=== PATIENT | female | born 1965 | race Caucasian/White ===

== ENCOUNTER 2016-08-25 16:27 | Observation (INO) | payer OTHER ==
[~2016-08-25] VITALS: Ht 172.7 cm; Wt 76.5 kg
[2016-08-25] MEDS ORDERED: METO100T44 PO (16:54)
[2016-08-25] MEDS ORDERED: PROAIR INH (16:54)
[2016-08-25] MEDS ORDERED: ESCI10TA17 PO (16:54)
[2016-08-25] MEDS ORDERED: ROSU5TAB PO (16:54)
--- NOTE | 2016-08-25 16:59 | EMERGENCY ROOM VISIT NOTE ---
History First contact with patient: 16:43 Chief Complaint: HYPERTENSION Stated Complaint: HTN, HEADACHE, NOSE BLEED EARLIER TODAY History of Present Illness The patient is a 50 year old female who presents to the Emergency Room via private vehicle with complaints of "hypertension, headache, nosebleed earlier today. The patient states she has a history of hypertension, and takes metoprolol. She did take a medication this morning. 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 She then had a sudden onset of nausea followed by vomiting a very large nosebleed around 11:30 AM today. She states she then went to the school nurse who checked her blood pressure and the diastolic was 100. She then went home, and recheck blood pressure in the diastolic had raised to 110. She was recommended to come to the emergency department by the school nurse. She is also felt like she has had heartburn off and on. She also has a slight headache. She denies any trauma, falls, fevers, chills, abdominal pain, urinary symptoms, vaginal discharge, speech troubles or unilateral weakness. There is no history of blood clots. Review of Systems A complete 10-point Review of Systems was discussed with the patient, with pertinent positives and negatives listed in the History of Present Illness. All remaining Review of Systems questions can be considered negative unless otherwise specified. Past Medical/Surgical History Medical Problems: (1) Allergic rhinitis (2) Chest pain (3) Fatty liver (4) Hyperlipidemia (5) Hypertension (6) Migraine Surgical Problems: (1) H/O drainage of abscess (2) History of dental surgery (3) S/P tonsillectomy and adenoidectomy Heart disease, heart pressure, bronchitis, Bartholin cyst Family History Heart disease, high blood pressure, cold bladder disease Social History Smoking Status: Never Smoker Social History: Patient is currently employed, and lives at home with and children. She denies tobacco products but admits to alcohol products. Current/Historical Medications Scheduled Escitalopram (Lexapro), 10 MG PO DAILY Metoprolol Succ (Toprol Xl) (Toprol-Xl ), 100 MG PO DAILY Rosuvastatin Calcium (Crestor), 5 MG PO DAILY Scheduled PRN Fluticasone Propionate (Nasal) (Flonase Allergy Relief), 1 SPRAY KARLENE DAILY PRN for Nasal Congestion [antihistamine], Unknown Dose PO for allergies Allergies Coded Allergies: Sulfa Drugs (Verified Allergy, Unknown, 08/25/16) Physical Exam Vital Signs Date Time Temp Pulse Resp B/P Pulse Ox O2 Delivery O2 Flow Rate FiO2 08/25/16 18:04 08/25/16 17:57 77 18 167/98 98 Room Air 08/25/16 17:02 97 Room Air 08/25/16 16:58 80 08/25/16 16:31 36.8 84 18 196/99 97 Room Air Physical Exam VITAL SIGNS - Vital signs and nursing notes were reviewed. Patient is afebrile , hypertensive at 196/99, non-tachycardic and is saturating well on room air 97% . GENERAL -50-year-old female appearing her stated age who is in no acute distress. Communicates well with provider and answers questions appropriately. SKIN - Without rashes. No petechial rashes. HEAD - NC/AT. EYES - PERRL with EOMI bilaterally. Sclera anicteric. Palpebral conjunctiva pink and moist with no injection noted. EARS - No deformities of external structures noted on gross examination bilaterally. No pain elicited with palpation of the tragus bilaterally. External auditory canals without discharge or otorrhea. Tympanic membranes pearly cruz without retraction or bulging. No fluid or purulent material visualized behind the TM. Handle of malleus, umbo, cone of light, pars tensa/ flaccid all easily visualized. NOSE - Midline and without cyanosis. No epistaxis or purulent drainage noted. Septum midline without deviation or septal hematoma noted. MOUTH/OROPHARYNX - Without perioral cyanosis. Buccal mucosa pink and moist and without leukoplakia. Tongue midline with equal elevation of palate bilaterally. No tonsillar hypertrophy, erythema, or exudates noted. Fair dentition noted. NECK - Neck with FROM. Supple to palpation. No lymphadenopathy noted. No nuchal rigidity. LUNGS - Chest wall symmetric without accessory muscle use, intercostals retractions, or central cyanosis. Normal vesicular breath sounds CTA B/L. No wheezes, rales, or rhonchi appreciated. CARDIAC - RRR with S1/S2. No murmur, rubs, or gallops appreciated. ABDOMEN - Abdominal contour without pulsations or visible masses. BS normoactive all four quadrants. No tenderness, palpable masses, hepatosplenomegaly, or ascites noted. EXTREMITIES - No clubbing or peripheral cyanosis. No pretibial edema present. + 5/5 strength noted in UE/LE bilaterally. NEUROLOGIC - Cranial nerves II through XII grossly intact. Sensory intact to light touch throughout. PSYCH - A&Ox3 and cooperates fully with examiner. Pt is very pleasant and interacts well with examiner. Medical Decision & Procedures ER Provider Diagnostic Interpretation: CHEST ONE VIEW PORTABLE CLINICAL HISTORY: Chest discomfort dyspnea COMPARISON STUDY: No previous studies for comparison. FINDINGS: The bones soft tissues and hemidiaphragms are normal. The cardiomediastinal silhouette is normal. The lungs are clear. The pulmonary vasculature is normal. IMPRESSION: Negative chest. Electronically signed by: Dequan Fontaine M.D. 08/25/2016 5:09 PM Dictated Date/Time: 08/25/2016 5:[address] CT DOSE: 537.48 mGy.cm HISTORY: Hypertension, Nausea, vomiting, headache TECHNIQUE: Multiaxial CT images of the head were performed without the use of intravenous contrast. Comparison: None. Findings: The paranasal sinuses and mastoid air cells are clear. The calvarium and skull base are intact. The ventricles and sulci are within normal limits. There is no mass, hematoma, midline shift, or acute infarct. Impression: No acute intracranial abnormality. Electronically signed by: Dequan Fontaine M.D. 08/25/2016 5:23 PM Dictated Date/Time: 08/25/2016 5:21 PM Laboratory Results 08/25/16 16:46 Red Blood Count 3.73, Mean Corpuscular Volume 103.2, Mean Corpuscular Hemoglobin 37.3, Mean Corpuscular Hemoglobin Concent 36.1, Mean Platelet Volume 9.8, Neutrophils (%) (Auto) 68.1, Lymphocytes (%) (Auto) 22.9, Monocytes (%) ( Auto) 6.7, Eosinophils (%) (Auto) 1.7, Basophils (%) (Auto) 0.3, Neutrophils # ( Auto) 4.79, Lymphocytes # (Auto) 1.61, Monocytes # (Auto) 0.47, Eosinophils # ( Auto) 0.12, Basophils # (Auto) 0.02 08/25/16 16:46 Test 08/25/16 16:46 08/25/16 17:00 08/25/16 17:05 4 17:31 White Blood Count 7.03 K/uL (4.8-10.8) Red Blood Count 3.73 M/uL (4.2-5.4) Hemoglobin 13.9 g/dL (12.0-16.0) Hematocrit 38.5 % (37-47) Mean Corpuscular Volume 103.2 fL (80-100) Mean Corpuscular Hemoglobin 37.3 pg (25-34) Mean Corpuscular Hemoglobin Concent 36.1 g/dl (32-36) Platelet Count 202 K/uL (130-400) Mean Platelet Volume 9.8 fL (7.4-10.4) Neutrophils (%) (Auto) 68.1 % Lymphocytes (%) (Auto) 22.9 % Monocytes (%) (Auto) 6.7 % Eosinophils (%) (Auto) 1.7 % Basophils (%) (Auto) 0.3 % Neutrophils # (Auto) 4.79 K/uL (1.4-6.5) Lymphocytes # (Auto) 1.61 K/uL (1.2-3.4) Monocytes # (Auto) 0.47 K/uL (0.11-0.59) Eosinophils # (Auto) 0.12 K/uL (0-0.5) Basophils # (Auto) 0.02 K/uL (0-0.2) RDW Standard Deviation 45.0 fL (36.4-46.3) RDW Coefficient of Variation 11.9 % (11.5-14.5) Immature Granulocyte % (Auto) 0.3 % Immature Granulocyte # (Auto) 0.02 K/uL (0.00-0.02) Prothrombin Time 11.0 SECONDS (9.0-12.0) Prothromb Time International Ratio 1.0 (0.9-1.1) Activated Partial Thromboplast Time 25.6 SECONDS (21.0-31.0) Partial Thromboplastin Ratio 1.0 Anion Gap 6.0 mmol/L (3-11) Est Creatinine Clear Calc Drug Dose 119.1 ml/min Estimated GFR () 121.7 Estimated GFR (Non- 105.0 BUN/Creatinine Ratio 13.9 (10-20) Calcium Level 9.5 mg/dl (8.5-10.1) Magnesium Level 1.9 mg/dl (1.8-2.4) Total Bilirubin 0.9 mg/dl (0.2-1) Aspartate Amino Transf (AST/SGOT) 193 U/L (15-37) Alanine Aminotransferase (ALT/SGPT) 154 U/L (12-78) Alkaline Phosphatase 116 U/L (45-117) Total Protein 8.0 gm/dl (6.4-8.2) Albumin 4.1 gm/dl (3.4-5.0) Globulin 3.9 gm/dl (2.5-4.0) Albumin/Globulin Ratio 1.1 (0.9-2) Lipase 151 U/L (73-393) Thyroid Stimulating Hormone (TSH) 2.390 uIu/ml (0.300-4.500) Bedside D-Dimer 240 ng/mlFEU (0-450) Influenza Type A Antigen Neg for Influ A (NEG) Influenza Type B Antigen Neg for Influ B (NEG) Urine Color YELLOW Urine Appearance CLEAR (CLEAR) Urine pH 6.5 (4.5-7.5) Urine Specific [place] 1.015 (1.000-1.030) Urine Protein NEG (NEG) Urine Glucose (UA) NEG (NEG) Urine Ketones NEG (NEG) Urine Occult Blood NEG (NEG) Urine Nitrite NEG (NEG) Urine Bilirubin NEG (NEG) Urine Urobilinogen NEG (NEG) Urine Leukocyte Esterase NEG (NEG) Urine Test NEG (NEG) Urine Opiates Screen NEG (NEG) Urine Methadone, Qualitative NEG (NEG) Urine Barbiturates NEG (NEG) Urine Phencyclidine (PCP) Level NEG (NEG) Ur Amphetamine/Methamphetamine NEG (NEG) MDMA (Ecstasy) Screen NEG (NEG) Urine Benzodiazepines Screen NEG (NEG) Urine Cocaine Metabolite NEG (NEG) Urine Marijuana (THC) NEG (NEG) Test 08/25/16 18:04 Bedside Troponin I 0.010 ng/ml (0-0.045) Medical Decision Patient was seen and evaluated as above. After obtaining a thorough history and physical examination IV access was initiated and the above workup was performed. CT scan of the head was initiated and was unremarkable. CBC reveals no leukocytosis. Slight red blood cell count decreased was noted. Coagulation studies unremarkable. D-dimer is negative. CMP reveals slight decrease in potassium at 3.3. AST and ALTs were both elevated, but the patient states that this is a known finding. She states that she is being worked up by her family doctor for this. Point care troponin was 0.000. TSH within normal limits. EKG shows normal sinus rhythm, rate of 85 bpm without ectopy or ischemic change. No previous EKG for comparison. Point of care troponin was repeated and was found to be slightly elevated at 0.010. Patient denied chest pain but did state she felt as though she had acid reflux throughout the day. This is concerning for potential cardiac etiology. I did discuss the case with my attending, and although the patient's presentation, and laboratory results are not suggestive of emergent process, the troponin increase is concerning. The case then was discussed with the hospitalist, who agreed to evaluate the patient. Please refer to further documentation regarding the patient's stay. In the evaluation and treatment of this patient, the following differential diagnoses were considered: Concussion, Contrecoup Injury, Brain Tumor, Depression, Encephalitis, Hypothyroidism, Meningitis, CVA, TIA, Migraine, Cluster Headache, Intracranial Abnormality, Intracranial Hemorrhage, Subdural Hematoma, Subarachnoid Hemorrhage, Hydrocephalus, myocardial infarction, PE, ACS , among others. Impression Primary Impression: Chest pain Additional Impressions: Hypertension Fatty liver Hypokalemia Departure Information Dispostion Admitted as an inpatient Condition FAIR Referrals Rickey Reilly M.D. (PCP) Patient Instructions [facility] Problem Qualifiers
[2016-08-25 17:05] LABS: BASO % 0.3 %; BASO ABS # 0.02 K/uL (0-0.2); COMPLETE YES; EOS % 1.7 %; HEMATOCRIT 38.5 % (37-47); IG% 0.3 %; LYMPH % 22.9 %; LYMPH ABS # 1.61 K/uL (1.2-3.4); MEAN CELL VOLUME 103.2 fL (80-100); MEAN CORPUSCULAR HEMOGLOBIN 37.3 pg (25-34); MEAN CORPUSCULAR HGB CONC 36.1 g/dl (32-36); MEAN PLATELET VOLUME 9.8 fL (7.4-10.4); MONO % 6.7 %; NEUT % 68.1 %; PLATELET COUNT 202 K/uL (130-400); RED BLOOD COUNT 3.73 M/uL (4.2-5.4); WHITE BLOOD COUNT 7.03 K/uL (4.8-10.8)
--- NOTE | 2016-08-25 17:11 | DIAGNOSTIC IMAGING REPORT ---
CHEST ONE VIEW PORTABLE CLINICAL HISTORY: Chest discomfort dyspnea COMPARISON STUDY: No previous studies for comparison. FINDINGS: The bones soft tissues and hemidiaphragms are normal. The cardiomediastinal silhouette is normal. The lungs are clear. The pulmonary vasculature is normal. IMPRESSION: Negative chest. Electronically signed by: Dequan Fontaine M.D. 08/25/2016 5:09 PM Dictated Date/Time: 08/25/2016 5:09 PM
[2016-08-25 17:16] LABS: BUN/CREATININE RATIO 13.9 (10-20); CALCIUM 9.5 mg/dl (8.5-10.1); CREATININE 0.61 mg/dl (0.60-1.20); MAGNESIUM 1.9 mg/dl (1.8-2.4); POTASSIUM 3.3 mmol/L (3.5-5.1)
--- NOTE | 2016-08-25 17:25 | DIAGNOSTIC IMAGING REPORT ---
HEAD CT NONCONTRAST CT DOSE: 537.48 mGy.cm HISTORY: Hypertension, Nausea, vomiting, headache TECHNIQUE: Multiaxial CT images of the head were performed without the use of intravenous contrast. Comparison: None. Findings: The paranasal sinuses and mastoid air cells are clear. The calvarium and skull base are intact. The ventricles and sulci are within normal limits. There is no mass, hematoma, midline shift, or acute infarct. Impression: No acute intracranial abnormality. Electronically signed by: Dequan Fontaine M.D. 08/25/2016 5:23 PM Dictated Date/Time: 08/25/2016 5:21 PM
[2016-08-25 17:27] LABS: ALB/GLOB RATIO 1.1 (0.9-2); CKMB/CK RATIO 0.9 (0-3.0); THYROID STIMULATING HORMONE 2.39 uIu/ml (0.300-4.500)
[2016-08-25 17:47] LABS: URINE APPEARANCE CLEAR (CLEAR); URINE BILIRUBIN NEG (NEG); URINE COLOR YELLOW; URINE NITRITE NEG (NEG); URINE PH 6.5 (4.5-7.5); URINE SPECIFIC GRAVITY 1.015 (1.000-1.030); UROBILINOGEN NEG (NEG); ZZUR CULT IF INDIC CLEAN CATCH NO
[2016-08-25 17:50] LABS: MANUAL MICROSCOPIC REQUIRED? NO; REVIEW REQ? NO
[2016-08-25 18:30] LABS: BENZODIAZEPINE, URINE NEG (NEG); COCAINE,URINE NEG (NEG); PHENCYCLIDINE, URINE NEG (NEG)
[2016-08-25] MEDS ORDERED: ONDANSETRON INJ 2 MG/ML 2 ML VIAL IV PRN (19:30)
[2016-08-25] MEDS ORDERED: ACETAMINOPHEN 325 MG TAB PO PRN (19:30)
[2016-08-25] MEDS ORDERED: antihistamine PO (19:37)
[2016-08-25] MEDS ORDERED: FLUT0.15 NAE (19:37)
[2016-08-25] MEDS ORDERED: FLUTICASONE PROPIONATE NA SPR 16 GM BTL NAE PRN (19:45)
[2016-08-25 20:13] VITALS: Ht 172.7 cm; Wt 76.5 kg
--- NOTE | 2016-08-25 20:46 | History and Physical ---
History & Physical Date & Time of Service: Aug 25, 2016 at 19:38 Chief Complaint: Htn, Headache, Nose Bleed Earlier Today Primary Care Physician: Chirag Collins M.D. History of Present Illness Source: patient, clinic records This is a 50 year old female with PMH of HTN, HL, fatty liver, and other problems listed below who presents to the ED for elevated blood pressure. Patient was in her normal state of health today when she suddenly became nauseous and vomited x 1. Then had episode of epistaxis lasting 20 minutes. 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 Also c/o mild DAVIS described as pressure. Had intermittent chest pain this afternoon described as burning in substernal area without radiation. Episodes lasted seconds and were unrelated to exertion or position. CP and nausea now resolved and patient would like to eat. In the ER, BP was 190s/90s-> 160s/90s -> 179/100 at time of my exam. She did take her usual metoprolol succinate 100 mg daily this am which she has been taking since 2008. Patient denies diaphoresis, dizziness, vision change, palpitations, URI symptoms, cough, SOB, KEENAN, abdominal pain, diarrhea, constipation, dysuria, frequency, calf pain or edema, anxiety, rash. Denies eating anything out of the ordinary. No sick contact, heavy lifting, recent travel. Reports h/o heart murmur as a child. Resting echo in 2008 showed normal EF and mild mitral regurgitation. Denies any other cardiac disorder. Has not had a stress test in the past. Denies hx of gallbladder disease. Pt was on Azithromycin and 1 week course of prednisone approx 1 month ago for acute bronchitis. Past Medical/Surgical History Medical Problems: (1) Allergic rhinitis Status: Chronic (2) Fatty liver Status: Chronic (3) Hyperlipidemia Status: Chronic (4) Hypertension Status: Chronic (5) Migraine Status: Chronic Surgical Problems: (1) H/O drainage of abscess Status: Chronic (2) History of dental surgery Status: Chronic (3) S/P tonsillectomy and adenoidectomy Status: Chronic Family History FH: CAD (coronary artery disease) FATHER ( of [place] age 65) Hypertension MOTHER SISTER Social History Smoking Status: Never Smoker Alcohol Use: 2 glasses of wine per day Marital Status: Housing status: lives with family Occupational Status: employed (works at [employer] ) Multi-Drug Resistant Organisms History of MDRO: No Allergies Coded Allergies: Sulfa Drugs (Verified Allergy, Unknown, 08/25/16) Home Medications Scheduled Escitalopram (Lexapro), 10 MG PO DAILY Metoprolol Succ (Toprol Xl) (Toprol-Xl ), 100 MG PO DAILY Rosuvastatin Calcium (Crestor), 5 MG PO DAILY Scheduled PRN Fluticasone Propionate (Nasal) (Flonase Allergy Relief), 1 SPRAY KARLENE DAILY PRN for Nasal Congestion [antihistamine], Unknown Dose PO for allergies Review of Systems Ten point ROS performed with pertinent positives and negatives noted in HPI. Physical Exam Vital Signs Date Time Temp Pulse Resp B/P Pulse Ox O2 Delivery O2 Flow Rate FiO2 08/25/16 18:04 08/25/16 17:57 77 18 167/98 98 Room Air 08/25/16 17:02 97 Room Air 08/25/16 16:58 80 08/25/16 16:31 36.8 84 18 196/99 97 Room Air General Appearance: WD/WN, no apparent distress, + pertinent finding (pleasant alert 50 year old female, no distress, and daughter at bedside) Head: normocephalic, atraumatic Eyes: normal inspection, PERRL, EOMI ENT: hearing grossly normal, pharynx normal Neck: supple, no JVD, trachea midline Respiratory/Chest: chest non-tender, lungs clear, normal breath sounds, no respiratory distress, no accessory muscle use Cardiovascular: regular rate, rhythm, no murmur, normal peripheral pulses Abdomen/GI: normal bowel sounds, non tender, soft Extremities/Musculoskelatal: no calf tenderness, no pedal edema Neurologic/Psych: alert, normal mood/affect, oriented x 3, + pertinent finding (grossly nonfocal) Skin: normal color, warm/dry, no rash (no rash on the chest) Diagnostics Laboratory Results Results Past 24 Hours Test 08/25/16 16:46 08/25/16 17:00 08/25/16 17:05 08/25/16 17:31 Range/Units White Blood Count 7.03 4.8-10.8 K/uL Red Blood Count 3.73 4.2-5.4 M/uL Hemoglobin 13.9 12.0-16.0 g/dL Hematocrit 38.5 37-47 % Mean Corpuscular Volume 103.2 80-100 fL Mean Corpuscular Hemoglobin 37.3 25-34 pg Mean Corpuscular Hemoglobin Concent 36.1 32-36 g/dl Platelet Count 202 130-400 K/uL Mean Platelet Volume 9.8 7.4-10.4 fL Neutrophils (%) (Auto) 68.1 % Lymphocytes (%) (Auto) 22.9 % Monocytes (%) (Auto) 6.7 % Eosinophils (%) (Auto) 1.7 % Basophils (%) (Auto) 0.3 % Neutrophils # (Auto) 4.79 1.4-6.5 K/uL Lymphocytes # (Auto) 1.61 1.2-3.4 K/uL Monocytes # (Auto) 0.47 0.11-0.59 K/uL Eosinophils # (Auto) 0.12 0-0.5 K/uL Basophils # (Auto) 0.02 0-0.2 K/uL RDW Standard Deviation 45.0 36.4-46.3 fL RDW Coefficient of Variation 11.9 11.5-14.5 % Immature Granulocyte % (Auto) 0.3 % Immature Granulocyte # (Auto) 0.02 0.00-0.02 K/uL Prothrombin Time 11.0 9.0-12.0 SECONDS Prothromb Time International Ratio 1.0 0.9-1.1 Activated Partial Thromboplast Time 25.6 21.0-31.0 SECONDS Partial Thromboplastin Ratio 1.0 Sodium Level 137 136-145 mmol/L Potassium Level 3.3 3.5-5.1 mmol/L Chloride Level 99 98-107 mmol/L Carbon Dioxide Level 32 21-32 mmol/L Anion Gap 6.0 3-11 mmol/L Blood Urea Nitrogen 8 7-18 mg/dl Creatinine 0.61 0.60-1.20 mg/dl Est Creatinine Clear Calc Drug Dose 119.1 ml/min Estimated GFR () 121.7 Estimated GFR (Non- 105.0 BUN/Creatinine Ratio 13.9 10-20 Random Glucose 95 70-99 mg/dl Calcium Level 9.5 8.5-10.1 mg/dl Magnesium Level 1.9 1.8-2.4 mg/dl Total Bilirubin 0.9 0.2-1 mg/dl Aspartate Amino Transf (AST/SGOT) 193 15-37 U/L Alanine Aminotransferase (ALT/SGPT) 154 12-78 U/L Alkaline Phosphatase 116 45-117 U/L Total Creatine Kinase 80 26-192 U/L Creatine Kinase MB 0.7 0.5-3.6 ng/ml Creatine Kinase MB Ratio 0.9 0-3.0 Total Protein 8.0 6.4-8.2 gm/dl Albumin 4.1 3.4-5.0 gm/dl Globulin 3.9 2.5-4.0 gm/dl Albumin/Globulin Ratio 1.1 0.9-2 Lipase 151 73-393 U/L Thyroid Stimulating Hormone (TSH) 2.390 0.300-4.500 uIu/ml Bedside D-Dimer 240 0-450 ng/mlFEU Bedside Troponin I 0.000 0-0.045 ng/ml Influenza Type A Antigen Neg for Influ A NEG Influenza Type B Antigen Neg for Influ B NEG Urine Color YELLOW Urine Appearance CLEAR CLEAR Urine pH 6.5 4.5-7.5 Urine Specific [place] 1.015 1.000-1.030 Urine Protein NEG NEG Urine Glucose (UA) NEG NEG Urine Ketones NEG NEG Urine Occult Blood NEG NEG Urine Nitrite NEG NEG Urine Bilirubin NEG NEG Urine Urobilinogen NEG NEG Urine Leukocyte Esterase NEG NEG Urine Test NEG NEG Urine Opiates Screen NEG NEG Urine Methadone, Qualitative NEG NEG Urine Barbiturates NEG NEG Urine Phencyclidine (PCP) Level NEG NEG Ur Amphetamine/Methamphetamine NEG NEG MDMA (Ecstasy) Screen NEG NEG Urine Benzodiazepines Screen NEG NEG Urine Cocaine Metabolite NEG NEG Urine Marijuana (THC) NEG NEG Test 08/25/16 18:04 08/25/16 19:33 Range/Units Bedside Troponin I 0.010 0-0.045 ng/ml Diagnostic Radiology HEAD CT NONCONTRAST CT DOSE: 537.48 mGy.cm HISTORY: Hypertension, Nausea, vomiting, headache TECHNIQUE: Multiaxial CT images of the head were performed without the use of intravenous contrast. Comparison: None. Findings: The paranasal sinuses and mastoid air cells are clear. The calvarium and skull base are intact. The ventricles and sulci are within normal limits. There is no mass, hematoma, midline shift, or acute infarct. Impression: No acute intracranial abnormality. CHEST ONE VIEW PORTABLE CLINICAL HISTORY: Chest discomfort dyspnea COMPARISON STUDY: No previous studies for comparison. FINDINGS: The bones soft tissues and hemidiaphragms are normal. The cardiomediastinal silhouette is normal. The lungs are clear. The pulmonary vasculature is normal. IMPRESSION: Negative chest. EKG NSR, nonspecific T wave abnormality in lead III, no ST abnormality Impression Assessment and Plan HYPERTENSIVE URGENCY CT head- negative; no evidence of ischemia so far on cardiac workup Compliant with metoprolol succinate 100 mg daily with good BP control in the past Urine drug screen negative Will give IV labetalol 10 mg x 1 and recheck BP Continue metoprolol succinate CHEST PAIN Rule out ACS; Risk factors- HTN, HL, + family history May be secondary to hypertensive urgency vs. GI related Prior echo 2008- normal LV EF, mild MR Initial troponin 0.00 -> 0.01 in ER EKG- nonspecific T wave abnormality lead III, no ST abnormality CXR- no acute findings Give aspirin 324 mg Continue statin and beta williams Trend serial enzymes Repeat EKG in am HYPOKALEMIA Likely from GI loss due to vomiting episode Replace with 40 meq PO and 20 meq IV Recheck PRP in am TRANSAMINITIS Has elevated LFT's from 2008- 2012 as outpatient Hx of fatty liver; also may be related to statin use Check RUQ ultrasound to r/o gallbladder/ biliary system pathology Check GGT; Check ferritin, iron, TIBC to r/o hemochromatosis; Screen for hepatitis A and B Recheck LFT's in am DYSLIPIDEMIA Continue statin Check fasting lipid panel in am PANIC DISORDER Continue Lexapro DVT PROPHYLAXIS Lovenox SQ FULL CODE DISPOSITION Observation to telemetry Follows with Dr. Collins for primary care Patient seen in collaboration with Dr. Young. Please see her addendum. ATTENDING ADDENDUM Record reviewed. Patient interviewed and examined. Care coordinated with Rosario Dunham PA-C. Please refer to her documentation for patient's history. No antihypertensives given in ER, gave labetalol 20mg x one on the floor. Repeat BP is pending. Will monitor overnight with call parameters to provider. Uncertain cause--off short course of steroids as of 3 weeks ago (7 day course for bronchitis), denies dietary indiscretions except for [place] food at a restaurant over the weekend, compliant with Toprol. Of note, we discussed that her PCP chose Toprol to avoid reaction to meds with sulfonamides. Although HCTZ is one of those meds, she would be a good candidate for an ACEI, ARB or CCB. Defer to primary team for this selection pending overnight pressures; cont Toprol for now. Cont telemetry monitoring and rule out ACS. Initial workup for mildly elevated LFTs is pending in setting of known fatty liver disease and statin use, which is the likely cause here. [place] Level of Care Telemetry Resuscitation Status FULL RESUSCITATION VTE Prophylaxis VTE Risk Assessment Done? Y/N: Yes Risk Level: Moderate Given or contraindicated: Enoxaparin (Lovenox)SQ Social Service Consult None Apply
--- NOTE | 2016-08-25 20:52 | DIAGNOSTIC IMAGING REPORT ---
Right upper quadrant ultrasound GALLBLADDER-ABD LIMITED CLINICAL HISTORY: transaminitis TECHNIQUE: Real-time ultrasound COMPARISON STUDY: None FINDINGS: Normal gallbladder. Common bile duct 3 mm. Fatty infiltration of liver. Pancreas and right kidney are unremarkable. IMPRESSION: Fatty infiltration of liver. Otherwise normal study Electronically signed by: Dequan Fontaine M.D. 08/25/2016 8:51 PM Dictated Date/Time: 08/25/2016 8:50 PM
[2016-08-25] MEDS ORDERED: LABETALOL HCL IV 5 MG/ML 20ML IV ONE (21:00)
[2016-08-25] MEDS ORDERED: POTASSIUM CHLORIDE 10 MEQ TABCR PO ONE ×2 (21:00)
[2016-08-25] MEDS: POTASSIUM CHLR 10 MEQ / WTR 10 MEQ in PREMIXED WATER 100 ML IV SCH ×2 (21:03→22:44)
[2016-08-25] MEDS ORDERED: LABETALOL HCL IV 5 MG/ML 20ML IV STA (21:15)
[2016-08-25 21:17] VITALS: BP_SYST 189; BP_SYST 197; BP_DIAS 102; BP_DIAS 95; PULSE 78; TEMP 37.1; O2SAT 94
[2016-08-25] MEDS ORDERED: ENOXAPARIN 40 MG/0.4 ML SYR SC SCH (22:00)
[2016-08-25] MEDS ORDERED: ASPIRIN 81 MG CHEW PO ONE (22:00)
[2016-08-25 22:15] VITALS: BP_SYST 167; BP_SYST 184; BP_DIAS 104; BP_DIAS 107; PULSE 63; O2SAT 95
[2016-08-25] MEDS ORDERED: IV FLUIDS COMPLETED PRN (23:15)
[2016-08-25 23:58] VITALS: BP 161/80; PULSE 79; TEMP 37; O2SAT 95
[2016-08-25 23:59] VITALS: O2SAT 95
[2016-08-26] VITALS (8 sets, daily range): BP systolic 135–181; BP diastolic 75–112; PULSE 69–78; TEMP 36.8–37.1; O2SAT 95–98
[2016-08-26 06:00] LABS: MEAN CELL VOLUME 102.6 fL (80-100); MEAN CORPUSCULAR HEMOGLOBIN 37.8 pg (25-34); MEAN CORPUSCULAR HGB CONC 36.9 g/dl (32-36); MEAN PLATELET VOLUME 9.9 fL (7.4-10.4); PLATELET COUNT 164 K/uL (130-400); RED BLOOD COUNT 3.41 M/uL (4.2-5.4); WHITE BLOOD COUNT 4.02 K/uL (4.8-10.8)
[2016-08-26 06:34] LABS: ALT/SGPT 117 U/L (12-78); BLOOD UREA NITROGEN 6 mg/dl (7-18); CARBON DIOXIDE 26 mmol/L (21-32); CHLORIDE 105 mmol/L (98-107); CHOLESTEROL 218 mg/dl (0-200); CREATININE 0.43 mg/dl (0.60-1.20); GLUCOSE 96 mg/dl (70-99); POTASSIUM 3.5 mmol/L (3.5-5.1); SODIUM 141 mmol/L (136-145); TRIGLYCERIDES 337 mg/dl (0-150); VERY LOW DENSITY LIPOPROT CALC 67 mg/dl
[2016-08-26 06:38] LABS: ALKALINE PHOSPHATASE 98 U/L (45-117); AST/SGOT 143 U/L (15-37); CKMB/CK RATIO 1.3 (0-3.0); FERRITIN 318.9 ng/ml (8.0-388.0); HDL CHOLESTEROL 44 mg/dl; LDL CHOLESTEROL CALCULATED 107 mg/dl; TOTAL IRON BINDING CAPACITY 257 mcg/dl (250-450)
[2016-08-26] MEDS ORDERED: METOPROLOL SUCC 50MG EXT REL TAB PO SCH (09:00)
[2016-08-26] MEDS ORDERED: ESCITALOPRAM OXALATE 10 MG TAB PO SCH (09:00)
[2016-08-26] MEDS ORDERED: ROSUVASTATIN CALCIUM 10 MG TAB PO SCH (09:00)
[2016-08-26] MEDS ORDERED: LISINOPRIL 10 MG TAB PO SCH (10:30)
--- NOTE | 2016-08-26 11:10 | Progress Note ---
Internal Med Progress Note Date of Service: Aug 26, 2016. Provider Documentation: SUBJECTIVE: Patient is doing well Had heart burn yesterday after eating which resolved by itself No chest pain, sob, headaches, nausea, vomiting, abd pain, cough, leg swelling BP is still high OBJECTIVE: Vital Signs-as noted below Exam: General-AAOX3, no di stress Neck-Supple Lungs-AEBE, no wheezing, crackles, rhonchi Heart-S1, A6dfntny, mild murmur Abdomen-Soft, non tender, non distended, BS present Extremities-No edema Neuro- No focal deficits Lab data as noted below. ASSESSMENT & PLAN: Assessment and Plan HYPERTENSIVE URGENCY: Still high BP. Asymptomatic. Likely secondary to inadequate medications for BP control. Has had high BP in past. -Compliant with metoprolol succinate 100 mg daily -Add lisinopril 10 mg today. If still high, may consider HCTZ -Work up- CT head- negative; no evidence of ischemia so far on cardiac workup; Troponin x 3 negative, EKG- x 2 - no acute ischemic changes; Urine drug screen negative Echo done- pending results CHEST PAIN, Likely GERD as clinically heart burn with food intake, resolved. Also had an episode of vomiting -Troponin x 3 negative, EKG x 2 - no significant abnormalities -Echo ordered- follow up -Continue with protonix HYPOKALEMIA Likely from GI loss due to vomiting episode -Replaced TRANSAMINITIS - Trending down Has elevated LFT's from 2008- 2012 as outpatient Hx of fatty liver -Continue with statin and monitor while on it -Work up- US liver- Fatty liver; Ferritin/Iron/TIBC - normal, Hep A/B- screening - pending, GGT-pendign DYSLIPIDEMIA -Continue statin -Lipid panel- TGS- 337, LDL 107 PANIC DISORDER -Continue Lexapro DVT PROPHYLAXIS -Lovenox SQ FULL CODE DISPOSITION -Observation to telemetry -Follows with Dr. Collins for primary care Vital Signs: Date Time Temp Pulse Resp B/P Pulse Ox O2 Delivery O2 Flow Rate FiO2 08/26/16 08:45 179/112 174/100 08/26/16 08:00 Room Air 08/26/16 07:34 36.9 76 18 181/96 96 Room Air 08/26/16 04:00 95 Room Air 08/26/16 03:09 36.8 69 18 135/75 98 Room Air 08/25/16 23:59 95 Room Air 08/25/16 23:58 37.0 79 17 161/80 95 Room Air 08/25/16 22:15 63 18 184/104 95 Room Air 167/107 08/25/16 21:17 37.1 78 18 197/102 94 Room Air 189/95 08/25/16 20:13 Room Air 08/25/16 19:57 76 20 179/100 98 Room Air 08/25/16 18:04 08/25/16 17:57 77 18 167/98 98 Room Air 08/25/16 17:02 97 Room Air 08/25/16 16:58 80 08/25/16 16:31 36.8 84 18 196/99 97 Room Air Lab Results: Results Past 24 Hours Test 08/25/16 16:46 08/25/16 17:00 08/25/16 17:05 08/25/16 17:31 Range/Units White Blood Count 7.03 4.8-10.8 K/uL Red Blood Count 3.73 4.2-5.4 M/uL Hemoglobin 13.9 12.0-16.0 g/dL Hematocrit 38.5 37-47 % Mean Corpuscular Volume 103.2 80-100 fL Mean Corpuscular Hemoglobin 37.3 25-34 pg Mean Corpuscular Hemoglobin Concent 36.1 32-36 g/dl Platelet Count 202 130-400 K/uL Mean Platelet Volume 9.8 7.4-10.4 fL Neutrophils (%) (Auto) 68.1 % Lymphocytes (%) (Auto) 22.9 % Monocytes (%) (Auto) 6.7 % Eosinophils (%) (Auto) 1.7 % Basophils (%) (Auto) 0.3 % Neutrophils # (Auto) 4.79 1.4-6.5 K/uL Lymphocytes # (Auto) 1.61 1.2-3.4 K/uL Monocytes # (Auto) 0.47 0.11-0.59 K/uL Eosinophils # (Auto) 0.12 0-0.5 K/uL Basophils # (Auto) 0.02 0-0.2 K/uL RDW Standard Deviation 45.0 36.4-46.3 fL RDW Coefficient of Variation 11.9 11.5-14.5 % Immature Granulocyte % (Auto) 0.3 % Immature Granulocyte # (Auto) 0.02 0.00-0.02 K/uL Prothrombin Time 11.0 9.0-12.0 SECONDS Prothromb Time International Ratio 1.0 0.9-1.1 Activated Partial Thromboplast Time 25.6 21.0-31.0 SECONDS Partial Thromboplastin Ratio 1.0 Sodium Level 137 136-145 mmol/L Potassium Level 3.3 3.5-5.1 mmol/L Chloride Level 99 98-107 mmol/L Carbon Dioxide Level 32 21-32 mmol/L Anion Gap 6.0 3-11 mmol/L Blood Urea Nitrogen 8 7-18 mg/dl Creatinine 0.61 0.60-1.20 mg/dl Est Creatinine Clear Calc Drug Dose 119.1 ml/min Estimated GFR () 121.7 Estimated GFR (Non- 105.0 BUN/Creatinine Ratio 13.9 10-20 Random Glucose 95 70-99 mg/dl Calcium Level 9.5 8.5-10.1 mg/dl Magnesium Level 1.9 1.8-2.4 mg/dl Total Bilirubin 0.9 0.2-1 mg/dl Aspartate Amino Transf (AST/SGOT) 193 15-37 U/L Alanine Aminotransferase (ALT/SGPT) 154 12-78 U/L Alkaline Phosphatase 116 45-117 U/L Total Creatine Kinase 80 26-192 U/L Creatine Kinase MB 0.7 0.5-3.6 ng/ml Creatine Kinase MB Ratio 0.9 0-3.0 Troponin I < 0.015 0-0.045 ng/ml Total Protein 8.0 6.4-8.2 gm/dl Albumin 4.1 3.4-5.0 gm/dl Globulin 3.9 2.5-4.0 gm/dl Albumin/Globulin Ratio 1.1 0.9-2 Lipase 151 73-393 U/L Thyroid Stimulating Hormone (TSH) 2.390 0.300-4.500 uIu/ml Bedside D-Dimer 240 0-450 ng/mlFEU Bedside Troponin I 0.000 0-0.045 ng/ml Influenza Type A Antigen Neg for Influ A NEG Influenza Type B Antigen Neg for Influ B NEG Urine Color YELLOW Urine Appearance CLEAR CLEAR Urine pH 6.5 4.5-7.5 Urine Specific [place] 1.015 1.000-1.030 Urine Protein NEG NEG Urine Glucose (UA) NEG NEG Urine Ketones NEG NEG Urine Occult Blood NEG NEG Urine Nitrite NEG NEG Urine Bilirubin NEG NEG Urine Urobilinogen NEG NEG Urine Leukocyte Esterase NEG NEG Urine Test NEG NEG Urine Opiates Screen NEG NEG Urine Methadone, Qualitative NEG NEG Urine Barbiturates NEG NEG Urine Phencyclidine (PCP) Level NEG NEG Ur Amphetamine/Methamphetamine NEG NEG MDMA (Ecstasy) Screen NEG NEG Urine Benzodiazepines Screen NEG NEG Urine Cocaine Metabolite NEG NEG Urine Marijuana (THC) NEG NEG Test 08/25/16 18:04 08/25/16 23:15 08/26/16 05:18 Range/Units Bedside Troponin I 0.010 0-0.045 ng/ml Total Creatine Kinase 58 53 26-192 U/L Creatine Kinase MB 0.6 0.7 0.5-3.6 ng/ml Creatine Kinase MB Ratio 1.0 1.3 0-3.0 Troponin I < 0.015 < 0.015 0-0.045 ng/ml White Blood Count 4.02 4.8-10.8 K/uL Red Blood Count 3.41 4.2-5.4 M/uL Hemoglobin 12.9 12.0-16.0 g/dL Hematocrit 35.0 37-47 % Mean Corpuscular Volume 102.6 80-100 fL Mean Corpuscular Hemoglobin 37.8 25-34 pg Mean Corpuscular Hemoglobin Concent 36.9 32-36 g/dl RDW Standard Deviation 45.0 36.4-46.3 fL RDW Coefficient of Variation 12.0 11.5-14.5 % Platelet Count 164 130-400 K/uL Mean Platelet Volume 9.9 7.4-10.4 fL Sodium Level 141 136-145 mmol/L Potassium Level 3.5 3.5-5.1 mmol/L Chloride Level 105 98-107 mmol/L Carbon Dioxide Level 26 21-32 mmol/L Anion Gap 10.0 3-11 mmol/L Blood Urea Nitrogen 6 7-18 mg/dl Creatinine 0.43 0.60-1.20 mg/dl Est Creatinine Clear Calc Drug Dose 169.0 ml/min Estimated GFR () 136.5 Estimated GFR (Non- 117.8 BUN/Creatinine Ratio 14.0 10-20 Random Glucose 96 70-99 mg/dl Calcium Level 9.0 8.5-10.1 mg/dl Iron Level 97 35-150 mcg/dl Total Iron Binding Capacity 257 250-450 mcg/dl Ferritin 318.9 8.0-388.0 ng/ml Total Bilirubin 0.9 0.2-1 mg/dl Direct Bilirubin 0.2 0-0.2 mg/dl Aspartate Amino Transf (AST/SGOT) 143 15-37 U/L Alanine Aminotransferase (ALT/SGPT) 117 12-78 U/L Alkaline Phosphatase 98 45-117 U/L Total Protein 6.8 6.4-8.2 gm/dl Albumin 3.6 3.4-5.0 gm/dl Triglycerides Level 337 0-150 mg/dl Cholesterol Level 218 0-200 mg/dl HDL Cholesterol 44 mg/dl LDL Cholesterol, Calculated 107 mg/dl VLDL Cholesterol, Calculated 67 mg/dl Cholesterol/HDL Ratio 5.0 Hepatitis B Surface Antigen NEG NEG Hepatitis C Antibody NEG NEG
[2016-08-26] MEDS ORDERED: LSN10 PO (15:32)
--- NOTE | 2016-08-26 15:35 | Discharge Instructions ---
Discharge Instructions Date of Service Aug 26, 2016. Admission Reason for Admission: Chest Pain Discharge Discharge Diagnosis / Problem: 1. Hypertensive urgency Discharge Goals Goal(s): Therapeutic intervention, Prevent Disease Progression Activity Recommendations Activity Limitations: resume your previous activity . Instructions / Follow-Up Instructions / Follow-Up MEDICATION CHANGES: 1. New medication: Lisinopril 10 mg daily MONITOR BP at home- take readings with you during next office appointment FOLLOW UP 1. With Dr Stephens 08/31/16 at11:20 AM Current Hospital Diet Patient's current hospital diet: AHA Diet (Heart Healthy) Discharge Diet Recommended Diet: AHA Diet (Heart Healthy), Low Sodium Diet (2gm Na) Pending Studies Studies pending at discharge: no Laboratory Results Lipid Panel Test 08/26/16 05:18 Range/Units Triglycerides Level 337 H 0-150 mg/dl Cholesterol Level 218 H 0-200 mg/dl HDL Cholesterol 44 mg/dl Cholesterol/HDL Ratio 5.0 LDL Cholesterol, Calculated 107 mg/dl Medical Emergencies . Who to Call and When: Medical Emergencies: If at any time you feel your situation is an emergency, please call 911 immediately. . Non-Emergent Contact Non-Emergency issues call your: Primary Care Provider . . "Provider Documentation" section prepared by Aranza Acosta. VTE Core Measure Inpt VTE Proph given/why not?: Enoxaparin (Lovenox)SQ
--- NOTE | 2016-08-26 15:40 | Discharge Summary ---
Discharge Summary Date of Service Aug 26, 2016. Discharge Summary Admission Date: Aug 25, 2016 at 19:30 Discharge Date: Aug 26, 2016 Discharge Disposition: Home Principal Diagnosis: 1. Hypertensive urgency 2. Chest pain, Acute DC ruled out, likely heart burn 3. Hypokalemia 4. Transaminitis Secondary Diagnoses/Problems: 1. Dyslipidemia 2. Panic disorder Procedures: Tele monitoring BP monitoring EKG x 2 Troponin x 3 Echocardiogram- pending results CXR Consultations: None Pending Studies/Follow-Up: Instructions / Follow-Up Instructions / Follow-Up MEDICATION CHANGES: 1. New medication: Lisinopril 10 mg daily MONITOR BP at home- take readings with you during next office appointment Follow up Echo results FOLLOW UP 1. With Dr Stephens 08/31/16 at11:20 AM Medication Reconciliation New Medications: Lisinopril (Zestril) 10 Mg Tab 10 MG PO DAILY for 30 Days, #30 TAB 2 Refills Continued Medications: Escitalopram (Lexapro) 10 Mg Tab 10 MG PO DAILY, TAB Fluticasone Propionate (Nasal) (Flonase Allergy Relief) 50 Mcg/Act Spr 1 SPRAY KARLENE DAILY PRN for Nasal Congestion Metoprolol Succ (Toprol Xl) (Toprol-Xl ) 100 Mg Tabcr 100 MG PO DAILY, TAB Rosuvastatin Calcium (Crestor) 5 Mg Tab 5 MG PO DAILY, TAB [antihistamine] () Unknown Strength Unknown Dose PO PRN for allergies Admission Information HPI (per Admitting provider): This is a 50 year old female with PMH of HTN, HL, fatty liver, and other problems listed below who presents to the ED for elevated blood pressure. Patient was in her normal state of health today when she suddenly became nauseous and vomited x 1. Then had episode of epistaxis lasting 20 minutes. 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 Also c/o mild DAVIS described as pressure. Had intermittent chest pain this afternoon described as burning in substernal area without radiation. Episodes lasted seconds and were unrelated to exertion or position. CP and nausea now resolved and patient would like to eat. In the ER, BP was 190s/90s-> 160s/90s -> 179/100 at time of my exam. She did take her usual metoprolol succinate 100 mg daily this am which she has been taking since 2008. Patient denies diaphoresis, dizziness, vision change, palpitations, URI symptoms, cough, SOB, KEENAN, abdominal pain, diarrhea, constipation, dysuria, frequency, calf pain or edema, anxiety, rash. Denies eating anything out of the ordinary. No sick contact, heavy lifting, recent travel. Reports h/o heart murmur as a child. Resting echo in 2008 showed normal EF and mild mitral regurgitation. Denies any other cardiac disorder. Has not had a stress test in the past. Denies hx of gallbladder disease. Pt was on Azithromycin and 1 week course of prednisone approx 1 month ago for acute bronchitis. Physical Exam (per Admitting): General Appearance: WD/WN, no apparent distress, + pertinent finding ( pleasant alert 50 year old female, no distress, and daughter at bedside) Head: normocephalic, atraumatic Eyes: normal inspection, PERRL, EOMI ENT: hearing grossly normal, pharynx normal Neck: supple, no JVD, trachea midline Respiratory/Chest: chest non-tender, lungs clear, normal breath sounds, no respiratory distress, no accessory muscle use Cardiovascular: regular rate, rhythm, no murmur, normal peripheral pulses Abdomen/GI: normal bowel sounds, non tender, soft Extremities/Musculoskelatal: no calf tenderness, no pedal edema Neurologic/Psych: alert, normal mood/affect, oriented x 3, + pertinent finding (grossly nonfocal) Skin: normal color, warm/dry, no rash (no rash on the chest) Hospital Course Assessment and Plan HYPERTENSIVE URGENCY: BP improved down to 150s now. Asymptomatic. Likely secondary to inadequate medications for BP control. Has had high BP in past. -Compliant with metoprolol succinate 100 mg daily -Added lisinopril 10 mg today- BP improved -Work up- CT head- negative; no evidence of ischemia so far on cardiac workup; Troponin x 3 negative, EKG- x 2 - no acute ischemic changes; Urine drug screen negative Echo done- pending results-follow up outpatient CHEST PAIN, Likely GERD as clinically heart burn with food intake, resolved. Also had an episode of vomiting -Troponin x 3 negative, EKG x 2 - no significant abnormalities -Echo ordered- follow up -Continue with protonix. Takes antacid PRN outpatient, if problem continues to be addressed outpatient by PCP HYPOKALEMIA Likely from GI loss due to vomiting episode -Replaced TRANSAMINITIS - Trending down Has elevated LFT's from 2008- 2012 as outpatient Hx of fatty liver -Continue with statin and monitor while on it -Work up- US liver- Fatty liver; Ferritin/Iron/TIBC - normal, Hep B/C- screening - Neg, GGT-pending DYSLIPIDEMIA -Continue statin -Monitor LFTs while on statin. -Lipid panel- TGS- 337, LDL 107 PANIC DISORDER -Continue Lexapro DVT PROPHYLAXIS -Lovenox SQ FULL CODE DISPOSITION -Observation to telemetry. Eager to be discharged Okay to discharge home today Total time spent on discharge = 28 minutes This includes examination of the patient, discharge planning, medication reconciliation, and communication with other providers. Discharge Instructions Activity Recommendations Activity Limitations: resume your previous activity . Instructions / Follow-Up Instructions / Follow-Up MEDICATION CHANGES: 1. New medication: Lisinopril 10 mg daily MONITOR BP at home- take readings with you during next office appointment FOLLOW UP 1. With Dr Stephens 08/31/16 at11:20 AM Current Hospital Diet Patient's current hospital diet: AHA Diet (Heart Healthy) Discharge Diet Recommended Diet: AHA Diet (Heart Healthy), Low Sodium Diet (2gm Na) Pending Studies Studies pending at discharge: no Laboratory Results Lipid Panel Test 08/26/16 05:18 Range/Units Triglycerides Level 337 H 0-150 mg/dl Cholesterol Level 218 H 0-200 mg/dl HDL Cholesterol 44 mg/dl Cholesterol/HDL Ratio 5.0 LDL Cholesterol, Calculated 107 mg/dl Medical Emergencies . Who to Call and When: Medical Emergencies: If at any time you feel your situation is an emergency, please call 911 immediately. . Non-Emergent Contact Non-Emergency issues call your: Primary Care Provider . . "Provider Documentation" section prepared by Aranza Acosta. VTE Core Measure Inpt VTE Proph given/why not?: Enoxaparin (Lovenox)SQ
== END 2016-08-26 16:20 | disposition home or self-care (01) ==
LOC: ENRESERVTM → ENRESERVDT → C.EDB 16:29 → C.2T 19:30
PROVIDERS: ADMIT Hospitalist; ATTEND Internal Medicine
DX: I16.0 Hypertensive urgency (principal); R07.9 Chest pain, unspecified; R74.0 Nonspecific elevation of levels of transaminase and lactic acid dehydrogenase [LDH]; K76.0 Fatty (change of) liver, not elsewhere classified; E87.6 Hypokalemia; E78.5 Hyperlipidemia, unspecified; Z90.89 Acquired absence of other organs; Z82.49 Family history of ischemic heart disease and other diseases of the circulatory system; Z84.89 Family history of other specified conditions; Z88.2 Allergy status to sulfonamides; F41.0 Panic disorder [episodic paroxysmal anxiety]